=== PATIENT | male | born 1975 | race Two or more races ===

== ENCOUNTER 2024-07-21 09:42 | Inpatient (IN) | payer OTHER ==
[~2024-07-21] VITALS: Ht 162.6 cm; Wt 75.1 kg
[2024-07-21] MEDS: ceFAZolin 2 GM/D5W100ml 100 ML IV ONE (10:07)
[2024-07-21 11:07] LABS: Basophils # (auto) 0 10 ^3/uL (0-0.2); Basophils % (auto) 0.5 % (0.0-2.0); Eosinophils # (auto) 0.1 10 ^3/uL (0-0.8); Eosinophils % (auto) 1.3 % (0.0-7.0); Hematocrit 42.3 % (41.0-53.0); Hemoglobin 14.3 g/dL (13.5-17.5); Lymphocytes # (auto) 2.9 10 ^3/uL (0.4-5.4); Lymphocytes % (auto) 32.8 % (10.0-50.0); Mean Corpuscular Hemoglobin 30.7 pg (28.0-32.0); Mean Corpuscular Hgb Conc. 33.7 g/dL (32.0-36.0); Mean Corpuscular Volume 90.8 fL (80.0-100.0); Monocytes # (auto) 0.8 10 ^3/uL (0-1.3); Monocytes % (auto) 8.9 % (0.0-12.0); Neutrophils % (auto) 56.5 % (37.0-80.0); Platelet Count (auto) 255 10^3/uL (140-450); Red Blood Cells 4.66 10^6/uL (4.5-5.90); White Blood Cell 8.9 10^3/uL (4.4-10.8)
[2024-07-21] MEDS ORDERED: NITROGLYCERIN 0.4 MG SL TAB SL PRN (11:30)
[2024-07-21] MEDS ORDERED: ONDANSETRON HCL 4 MG/2 ML VIAL IV PRN (11:30)
[2024-07-21] MEDS ORDERED: MORPHINE SULFATE INJ 2 MG/ml SYRG IV PRN (11:30)
[2024-07-21] MEDS: LACTATED RINGER'S 1,000 ML IV SCH (11:30)
[2024-07-21] MEDS ORDERED: HYDROmorphone HCL 2 MG/ML VL/or syr IV PRN ×3 (11:30→14:15)
[2024-07-21] MEDS ORDERED: fentaNYL CITRATE 100 MCG/2 ML VL ONE (11:51)
[2024-07-21] MEDS ORDERED: PROPOFOL 10 MG/ML 20 ML IV ONE (11:52)
[2024-07-21] MEDS: BUPIVACAINE 0.5% MPF INJ 30ML SDV IJ ONE (12:01)
[2024-07-21] MEDS ORDERED: DexAMETHasone SOD PHOS 10MG/1ML VIAL INJ ONE (12:16)
[2024-07-21] MEDS ORDERED: ONDANSETRON HCL 4 MG/2 ML VIAL ONE (12:16)
[2024-07-21] MEDS: ROPIVACAINE 0.5% (5MG/ML) 20ML AMPULE IJ ONE (12:47)
[2024-07-21 13:12] VITALS: PULSE 73; RESP 10; O2SAT 100
[2024-07-21] MEDS: HYDROmorphone HCL 2 MG/ML VL/or syr ONE (13:30)
[2024-07-21] MEDS: ONDANSETRON HCL 4 MG/2 ML VIAL IV ONE (13:30)
[2024-07-21] MEDS ORDERED: MEPERIDINE HCL (25 MG/ML) 1ML VIAL IV PRN (13:30)
[2024-07-21] MEDS ORDERED: ACETAMINOPHEN IV 100 ML IV ONE (13:42)
[2024-07-21] MEDS: ACETAMINOPHEN IV 1000 MG/100ML (10MG/ML) IV PRN (13:55)
[2024-07-21] MEDS: SODIUM CHLOR 0.9% PF (SALINE LOCK) 10ML VIAL/SYR IV SCH (14:00)
--- NOTE | 2024-07-21 14:04 | DVHHP2 ---
Review of Systems Allergies: Coded Allergies: NO KNOWN ALLERGIES (Unverified , 07/21/24) Medications Current Medications Medications Dose Ordered Sig/Libia Route Start Time Stop Time Status Last Admin Dose Admin Lactated Ringer's 1,000 ml @ 100 mls/hr Q10H IV 07/21/24 11:30 Sodium Chloride 10 ml Q8HR IV 07/21/24 14:00 Cefazolin Sodium 50 ml @ 50 mls/hr Q6HR IV 07/21/24 18:00 07/22/24 06:59 Acetaminophen/ Hydrocodone Bitart 1 tab Q4HP PRN PO 07/21/24 11:30 Hydromorphone HCl 1 mg Q2HP PRN IV 07/21/24 11:30 Ondansetron HCl 4 mg Q6HP PRN IV 07/21/24 11:30 Docusate Sodium 100 mg Q12HR PO 07/21/24 22:00 Enoxaparin Sodium 40 mg DAILY SC 07/22/24 10:00 Nitroglycerin 0.4 mg Q5MINP PRN SL 07/21/24 11:30 Morphine Sulfate 2 mg Q30M PRN IV 07/21/24 11:30 Hydromorphone HCl 0.5 mg Q10M PRN IV 07/21/24 13:30 07/21/24 18:00 Meperidine HCl 25 mg Q10M PRN IV 07/21/24 13:30 07/21/24 18:00 Exam Vital Signs Vital Signs Date Time Temp Pulse Resp B/P (MAP) Pulse Ox O2 Delivery O2 Flow Rate FiO2 07/21/24 13:12 Mask 7.0 07/21/24 13:12 98.2 73 10 126/80 (95) 73 98.2 Labs/Xrays Labs Test 07/21/24 10:25 Range/Units White Blood Count 8.9 4.4-10.8 10^3/uL Red Blood Count 4.66 4.5-5.90 10^6/uL Hemoglobin 14.3 13.5-17.5 g/dL Hematocrit 42.3 41.0-53.0 % Mean Corpuscular Volume 90.8 80.0-100.0 fL Mean Corpuscular Hemoglobin 30.7 28.0-32.0 pg Mean Corpuscular Hemoglobin Concent 33.7 32.0-36.0 g/dL Red Cell Distribution Width 13.0 11.8-14.3 % Platelet Count 255 140-450 10^3/uL Mean Platelet Volume 8.3 6.9-10.8 fL Neutrophils (%) (Auto) 56.5 37.0-80.0 % Lymphocytes (%) (Auto) 32.8 10.0-50.0 % Monocytes (%) (Auto) 8.9 0.0-12.0 % Eosinophils (%) (Auto) 1.3 0.0-7.0 % Basophils (%) (Auto) 0.5 0.0-2.0 % Neutrophils # (Auto) 5.0 1.6-8.6 10 ^3/uL Lymphocytes # (Auto) 2.9 0.4-5.4 10 ^3/uL Monocytes # (Auto) 0.8 0-1.3 10 ^3/uL Eosinophils # (Auto) 0.1 0-0.8 10 ^3/uL Basophils # (Auto) 0 0-0.2 10 ^3/uL Nucleated Red Blood Cells 0.0 % Creatinine 0.72 0.700-1.30 mg/dL Glomerular Filtration Rate Calc 114 >90 mL/min Assessment/Plan Assessment/Plan see dictated note Plan discussed with: Patient Date of Service: Jul 21, 2024 Billing Provider: LUIS ARMANDO ARELLANO MD Common Visit Codes: [id number] INP/OBS CARE (HIGH) LUIS ARMANDO ARELLANO MD Jul 21, 2024 14:04
--- NOTE | 2024-07-21 14:08 | CODING ---
Date of Service: Jul 21, 2024 Billing Provider: LUIS ARMANDO ARELLANO MD Common Visit Codes: [id number] INP/OBS CARE (HIGH) Secondary Visit Codes: [id number] CHNG SMOKING >10MIN LUIS ARMANDO ARELLANO MD Jul 21, 2024 14:08
--- NOTE | 2024-07-21 14:31 | DVHHP ---
ADMIT DATE: 07/21/2024 HISTORY OF PRESENT ILLNESS: The patient is a 48-year-old gentleman who has been admitted after he underwent surgery on the right ankle for right ankle fracture. The patient at this time complains of pain at the site of surgery. No chest pain or shortness of breath. No nausea or vomiting. REVIEW OF SYSTEMS: Review of rest of systems are otherwise currently negative. PAST MEDICAL HISTORY: No significant illness in the past. MEDICATIONS: He takes no medicine on a regular basis. ALLERGIES: No known drug allergies. SOCIAL HISTORY: Smokes about half a pack a day. Denies alcohol intake. Currently, is incarcerated. FAMILY HISTORY: Negative. PHYSICAL EXAMINATION: GENERAL: The patient is awake, alert. VITAL SIGNS: Temperature of 97.8, pulse of 73 per minute, blood pressure 126/80. SHEENT: Unremarkable. NECK: There is no JVD, no pedal edema. LUNGS: Equal bilaterally. No added sounds. CARDIOVASCULAR: S1, S2 is regular. No murmurs. ABDOMEN: Soft. There is no organomegaly. NEUROLOGIC: Nonfocal. MUSCULOSKELETAL: The right ankle is currently in a dressing. ASSESSMENT AND PLAN: * Tobacco abuse. The patient has been advised to quit. He refuses a nicotine patch at this time. Time spent was 11 minutes. * Right ankle fracture, status post surgery. The patient will be placed on IV fluids along with pain medications. MD TAHIRA Morris/WILBERTO TID: [id number] RECEIPT: [id number]
--- NOTE | 2024-07-21 15:20 | DVH ---
C-ARM FLUOROSCOPY: PROCEDURE: Right ankle ORIF FLUOROSCOPY TIME: 80.3 seconds DAP: 1.28 mgy FINDINGS: Spot intraoperative C arm radiographs demonstrating right ankle ORIF. IMPRESSION: Please refer to surgical report for detailed findings.
[2024-07-21 17:37] VITALS: BP 137/86; PULSE 82; RESP 18; TEMP 98; O2SAT 97
[2024-07-21 20:00] VITALS: PULSE 75; RESP 19; O2SAT 95
[2024-07-21] MEDS: ceFAZolin 1GM/50ML 50 ML IV SCH (20:20)
[2024-07-21 21:00] VITALS: BP 112/70; PULSE 75; RESP 19; TEMP 98.2; O2SAT 95
[2024-07-21] MEDS: DOCUSATE SOD 100 MG CAP PO SCH (21:32)
[2024-07-22 01:00] VITALS: BP 110/70; PULSE 68; RESP 19; TEMP 97.9; O2SAT 97
[2024-07-22 02:33] LABS: Urine Bacteria None Seen /hpf (None Seen)
[2024-07-22 02:43] LABS: Urine Blood Negative /uL (Negative); Urine Clarity Clear (Clear); Urine Color Colorless (Yellow); Urine Protein, UAD Negative (Negative); Urine Specific Gravity 1.008 (1.001-1.035); Urine Squamous Epithelial Cell None Seen /hpf (<5); Urine Urobilinogen Normal (Negative)
[2024-07-22 02:44] LABS: Urine WBC < 1 /HPF (0-3)
[2024-07-22 05:00] VITALS: BP 113/73; PULSE 68; RESP 18; TEMP 97.8; O2SAT 96
[2024-07-22 06:05] LABS: Basophils # (auto) 0 10 ^3/uL (0-0.2); Basophils % (auto) 0.1 % (0.0-2.0); Eosinophils # (auto) 0 10 ^3/uL (0-0.8); Hematocrit 42.6 % (41.0-53.0); Hemoglobin 14.3 g/dL (13.5-17.5); Lymphocytes # (auto) 1.9 10 ^3/uL (0.4-5.4); Lymphocytes % (auto) 14.3 % (10.0-50.0); Mean Corpuscular Hemoglobin 30.1 pg (28.0-32.0); Mean Corpuscular Hgb Conc. 33.6 g/dL (32.0-36.0); Mean Corpuscular Volume 89.8 fL (80.0-100.0); Monocytes # (auto) 0.8 10 ^3/uL (0-1.3); Monocytes % (auto) 5.7 % (0.0-12.0); Neutrophils # (auto) 10.8 10 ^3/uL (1.6-8.6); Neutrophils % (auto) 79.9 % (37.0-80.0); Nucleated Red Blood Cells % 0.1 %; Platelet Count (auto) 259 10^3/uL (140-450); Red Blood Cells 4.74 10^6/uL (4.5-5.90); Red Cell Distribution Width 12.6 % (11.8-14.3); White Blood Cell 13.5 10^3/uL (4.4-10.8)
[2024-07-22 06:27] LABS: Alanine Aminotransferase 19 U/L (7-40); Alkaline Phosphatase 80 U/L (46-116); Anion Gap 8 (5-15); BUN/Creatinine Ratio 13.9 (10.0-20.0); Blood Urea Nitrogen 11 mg/dL (9-23); Calcium 9.7 mg/dL (8.7-10.4); Carbon Dioxide 27 mmol/L (20-31); Chloride 105 mmol/L (98-107); Glucose 140 mg/dL (74-106); Potassium 4.1 mmol/L (3.5-5.1); Sodium 140 mmol/L (136-145); Total Protein 6.9 g/dL (5.7-8.2)
[2024-07-22 06:28] LABS: Albumin 4.2 g/dL (3.2-4.8); Aspartate Aminotransferase 19 U/L (13-40)
[2024-07-22 06:29] LABS: Bilirubin, Total 0.4 mg/dL (0.2-1.0)
[2024-07-22 08:00] VITALS: PULSE 65; RESP 17; O2SAT 97
--- NOTE | 2024-07-22 08:25 | DVHPN2 ---
Progress Note Date Seen: Jul 22, 2024 Medical Necessity Reason Pt with a Central, PICC or Fol: No The following are medically ne: [place] Catheter Subjective Patient reports: No new complaints Objective vital signs Vital Sign Date Time Temp Pulse Resp B/P (MAP) Pulse Ox O2 Delivery O2 Flow Rate FiO2 07/22/24 05:00 97.8 68 18 113/73 (86) 96 97.8 07/21/24 20:00 Room Air* 0 21 Total Intake and Output 07/21/24 07/21/24 07/22/24 15:00 23:00 07:00 Intake Total 100 ml 675 ml Output Total 700 ml 2350 ml Balance 100 ml -700 ml -1675 ml medications Current Medications Medications Dose Ordered Sig/Libia Route Start Time Stop Time Status Last Admin Dose Admin Lactated Ringer's 1,000 ml @ 100 mls/hr Q10H IV 07/21/24 11:30 07/22/24 06:35 100 MLS/HR Sodium Chloride 10 ml Q8HR IV 07/21/24 14:00 07/21/24 14:00 10 ML Cefazolin Sodium 50 ml @ 50 mls/hr Q6H IV 07/21/24 20:30 07/22/24 09:29 07/22/24 01:45 50 MLS/HR Acetaminophen/ Hydrocodone Bitart 1 tab Q4HP PRN PO 07/21/24 11:30 Ondansetron HCl 4 mg Q6HP PRN IV 07/21/24 11:30 Docusate Sodium 100 mg Q12HR PO 07/21/24 22:00 07/21/24 21:32 100 MG Enoxaparin Sodium 40 mg DAILY SC 07/22/24 10:00 Nitroglycerin 0.4 mg Q5MINP PRN SL 07/21/24 11:30 Morphine Sulfate 2 mg Q30M PRN IV 07/21/24 11:30 Hydromorphone HCl 1 mg Q3HP PRN IV 07/21/24 14:15 Examination: GENERAL:Normal, MSK:Abnormal laboratory and microbiology Laboratory Tests 07/22/24 05:24 Test 07/22/24 05:24 Range/Units Serum Glucose 140 H 74-106 mg/dL Problem List/Assessment/Plan Problem List/Assessment/Plan 48 year old male who is s/p ORIF right ankle POD 1 1. Pain control 2. NWB RLE 3. Splint adjusted and loosened as patient was concerned about lack of mobility in toes that was secondary to swelling and tightness of NONA wrap 3. Physical therapy 4. Continue with splint x 2 weeks Plan discussed with: Patient Date of Service: Jul 22, 2024 Billing Provider: THAI JERNIGAN MD Common Visit Codes: NOT BILLABLE YEFRI HOWELL NP Jul 22, 2024 08:25
[2024-07-22 09:00] VITALS: BP 104/66; PULSE 65; RESP 17; TEMP 97.9; O2SAT 97
[2024-07-22] MEDS: ENOXAPARIN SOD 40 MG/0.4 ML SYRINGE SC SCH (10:00)
--- NOTE | 2024-07-22 11:17 | DVHDS2 ---
Discharge Summary Date of Admission Jul 21, 2024 at 11:26 Date of Discharge: Jul 22, 2024 Labs/Diagnostic Data: Laboratory Results Test 07/22/24 05:24 07/22/24 02:11 07/21/24 20:11 White Blood Count 13.5 10^3/uL (4.4-10.8) Red Blood Count 4.74 10^6/uL (4.5-5.90) Hemoglobin 14.3 g/dL (13.5-17.5) Hematocrit 42.6 % (41.0-53.0) Mean Corpuscular Volume 89.8 fL (80.0-100.0) Mean Corpuscular Hemoglobin 30.1 pg (28.0-32.0) Mean Corpuscular Hemoglobin Concent 33.6 g/dL (32.0-36.0) Red Cell Distribution Width 12.6 % (11.8-14.3) Platelet Count 259 10^3/uL (140-450) Mean Platelet Volume 8.4 fL (6.9-10.8) Neutrophils (%) (Auto) 79.9 % (37.0-80.0) Lymphocytes (%) (Auto) 14.3 % (10.0-50.0) Monocytes (%) (Auto) 5.7 % (0.0-12.0) Eosinophils (%) (Auto) 0.0 % (0.0-7.0) Basophils (%) (Auto) 0.1 % (0.0-2.0) Neutrophils # (Auto) 10.8 10 ^3/uL (1.6-8.6) Lymphocytes # (Auto) 1.9 10 ^3/uL (0.4-5.4) Monocytes # (Auto) 0.8 10 ^3/uL (0-1.3) Eosinophils # (Auto) 0 10 ^3/uL (0-0.8) Basophils # (Auto) 0 10 ^3/uL (0-0.2) Nucleated Red Blood Cells 0.1 % Sodium Level 140 mmol/L (136-145) Potassium Level 4.1 mmol/L (3.5-5.1) Chloride Level 105 mmol/L (98-107) Carbon Dioxide Level 27 mmol/L (20-31) Anion Gap 8 (5-15) Blood Urea Nitrogen 11 mg/dL (9-23) Creatinine 0.79 mg/dL (0.700-1.30) Glomerular Filtration Rate Calc 111 mL/min (>90) BUN/Creatinine Ratio 13.9 (10.0-20.0) Serum Glucose 140 mg/dL (74-106) Calcium Level 9.7 mg/dL (8.7-10.4) Total Bilirubin 0.4 mg/dL (0.2-1.0) Aspartate Amino Transferase (AST) 19 U/L (13-40) Alanine Aminotransferase (ALT) 19 U/L (7-40) Alkaline Phosphatase 80 U/L (46-116) Total Protein 6.9 g/dL (5.7-8.2) Albumin 4.2 g/dL (3.2-4.8) Urine Color Colorless (Yellow) Urine Clarity Clear (Clear) Urine pH 7.0 (5.0-9.0) Urine Specific [place] 1.008 (1.001-1.035) Urine Protein Negative (Negative) Urine Ketones Negative (Negative) Urine Blood Negative /uL (Negative) Urine Nitrite Negative (Negative) Urine Bilirubin Negative (Negative) Urine Urobilinogen Normal mg/dL (Negative) Urine Leukocyte Esterase Negative /uL (Negative) Urine RBC 1 /hpf (0 - 3) Urine Microscopic WBC < 1 /HPF (0-3) Urine Squamous Epithelial Cells None seen /hpf (<5) Urine Bacteria None seen /hpf (None Seen) Urine Glucose Normal mg/dL (Normal) Other Laboratory Tests 07/22/24 05:24 Brief Hx & Hospital Course: SEE DICTATED NOTE Condition at Discharge: Good Final Diagnosis/Problems List RIGHT ANKLE FRACTURE Discharge Disposition: Intermediate Discharge Instruct/Medications Diet: Regular Activity: See Comment Activity comment: NON WEIGHT BEARING RIGHT LEG Follow Up/Referral: FU WITH ORTHO IN 2 WKS Medications: DC HOME IF OK WITH ORTHO HOME CRUTCHES Discharge Statement: "Patient was advised to return to the ER or call 911 if any headaches, dizziness, shortness of breath, chest pain, abdominal pain, bleeding, fevers, or worsening of medical condition. Patient was counseled about treatment plan, medications, possible side effects, patientverbalized understanding. All questions were answered to the best of my ability. This discharge took greater then 30 minutes in planning, reviewing documentation, counseling the patient, and discussing with other team members." ASSESSMENT ASSESSMENT Assessment RIGHT ANKLE FRACTURE Date of Service: Jul 22, 2024 Billing Provider: LUIS ARMANDO ARELLANO MD Common Visit Codes: 51810-TFZ/OBS DISCH DAY >30min LUIS ARMANDO ARELLANO MD Jul 22, 2024 11:17
--- NOTE | 2024-07-22 11:25 | DVHDS ---
DATE OF DISCHARGE: 07/22/2024 HISTORY OF PRESENT ILLNESS: The patient is a 48-year-old gentleman who was admitted after he underwent surgery on the right ankle for right ankle fracture. The patient has previous history of tobacco abuse. HOSPITAL COURSE: The patient did well postoperatively. The patient was seen in the orthopedic consult. The patient complains of some numbness in the right leg, but did have a nerve block on that leg. The patient will be discharged if cleared by orthopedics to be nonweightbearing on the right leg and to follow up with them in 2 weeks. FINAL DIAGNOSES: Therefore, * Right ankle fracture, status post surgery. * History of tobacco abuse. Time spent in discharge planning and review of plan with the patient and nursing was 38 minutes. MD TAHIRA Morris/SCOTT TID: [id number] RECEIPT: [id number]
[2024-07-22] MEDS: HYDROcodone-ACET 5/325MG TAB PO PRN (15:26)
[2024-07-22 17:00] VITALS: BP 106/66; PULSE 73; RESP 17; TEMP 97.4; O2SAT 95
--- NOTE | 2024-07-23 16:28 | DVHOP2 ---
Operative Report - 2 Report Details Date: 07/21/24 Preop Diagnosis: Right bimalleolar ankle fracture Postop Diagnosis: as above Surgeon: Jose Manuel Yang MD Button Cutter: Noel SCRUGGS Anesthesiologist: Dolly KELLEY Anesthesia: General, Regional Implant: Arthrex Fibula nail/ screw/ tightrope Consent: The patient was informed of the risks and benefits of the procedure. These include but are not limited to complications of anesthesia, postoperative infection, incomplete relief of symptoms, recurrence of symptoms, damage to blood vessels, nerves and tendons, deep venous thrombosis, pulmonary embolism and possible need for repeat surgery in the future. Estimated Blood Loss: 5 cc Findings: 48 yo M with right jono equivalent ankle fracture with mortise widening on standing xrays Name of Procedure Performed 1. open reduction internal fixation of right bimalleolar equivalent ankle fracture; intraop fluoro Procedure Details Procedure Details: Risks/benefits/options and alternatives were discussed in length. Risks associated with anesthesia, infection, damage to nerves and blood vessels, and bleeding or blood clots. Problems after ankle fracture surgery include ankle joint stiffness, weakness, need for further surgery and arthritis. Possible complications after ankle fracture surgery include infection and problems with healing. PROCEDURE: After all potential complications and risks as well as risks and benefits of the above-mentioned procedure was discussed at length with the patient and family, informed consent was obtained. The lower extremity was then confirmed with the operating surgeon, the patient, the nursing staff and Department of Anesthesia. The patient was then transferred to preoperative area in the Operative Suite and placed on the operating room table in supine position. At this time, the anesthesia was performed. All bony prominences were well padded at this time. A nonsterile tourniquet was placed on the right upper thigh of the patient. This was then removed and the right lower extremity was sterilely prepped and draped in the usual sterile fashion. The right lower extremity was then elevated and exsanguinated using Esmarch and tourniquet was then placed to 250 mmHg. Next, after all bony and soft tissue landmarks were identified, a 2 cm longitudinal incision was made directly over the lateral mal fracture on the rig ht ankle. A sharp dissection was carefully taken down to the level of bone taking care to protect the neurovascular structures. Once the bone was reached, the fractured site was identified. The bony ends were then opened and divided of all hematoma as well as excess periosteum within the fracture site. For her lateral side, she had a mid fibula fracture with shortening resulting in syndesmotic widening. With manual traction and manipulation with bone reduction clamps we were able to reduce patient fracture. Intraoperative fluoroscopy confirmed reduction.We then proceed with placement of fibula nail. Guidewire placed and appropriately reamed. Nail placed and locked distally and then a syndesmotic tightrope placed under fluoro. Next Fluorsocpy was used to visualize the hardware placement as well as the fracture reduction appeared to be in good anatomic position, all hardware was in good position. There was no lateralization of the joints. At this time, each wound was copiously irrigated and suctioned dry. The wounds were then closed using #2-0 Vicryl suture in subcutaneous fashion followed by 3-0 nylon on the skin. A sterile dressing was applied consistent with Adaptic, 4x4s, Kerlix, and Webril. An ankle splint was then placed on the right lower extremity. The patient was transferred back to the [facility] and to the Postanesthetic Care Unit. The patient tolerated the procedure well. There were no complications. Condition Good Disposition Still a Patient JOSE MANUEL YANG MD Jul 23, 2024 16:28
[2024-07-24 09:14] LABS: Hepatitis B Surface Antigen Negative (Negative); Hepatitis C Antibody Negative (Negative)
== END 2024-07-22 19:47 | DRG 494 ==
LOC: EEVIPCON → SUR 09:42 → OVERFLOW 11:26 → EAST 19:38
PROVIDERS: ADMIT Internal Medicine; ATTEND Internal Medicine
PROC: 0QSG04Z Reposition Right Tibia with Internal Fixation Device, Open Approach (ICD-10-PCS; 2024-07-21)
PROC: 0QSJ04Z Reposition Right Fibula with Internal Fixation Device, Open Approach (ICD-10-PCS; principal; 2024-07-21 12:09)
DX: S82.841A Displaced bimalleolar fracture of right lower leg, initial encounter for closed fracture (principal); F17.210 Nicotine dependence, cigarettes, uncomplicated; X58.XXXA Exposure to other specified factors, initial encounter; Y93.89 Activity, other specified; Y92.89 Other specified places as the place of occurrence of the external cause; Y99.8 Other external cause status
CPT/HCPCS: 36415; 73610; 76000; 80053; 81001; 82565; 85025; 86803; 87081; 87340; 97163; G0378; J0131; J1100; J2405; J2704; J3490